=== PATIENT | male | born 1940 | race Caucasian/White ===

== ENCOUNTER → 2020-05-26 10:18 | Outpatient (BNVA) | payer MEDICARE, SELFPAY | PROVIDERS: Family Provider Family Medicine; PCP Family Medicine; Visit Provider Nurse Practitioner Family | DX: N28.1 Cyst of kidney, acquired (principal) | CPT/HCPCS: 81001 ==

== ENCOUNTER 2020-11-15 09:13 | Outpatient (CLI) | payer MEDICARE, SELFPAY ==
--- NOTE | 2020-11-15 09:15 | US_ITS ---
WS: [id number] ULTRASOUND RENAL TECHNIQUE: Ultrasound examination of both kidneys. CLINICAL INFORMATION: Renal Cyst COMPARISON: None. FINDINGS: RIGHT: 3 simple right renal cysts the largest measuring 4.0 x 4.0 x 3.7 cm. Additional smaller right renal c yst measuring 2.1 x 2.4 x 2.5 cm. Echogenicity: Normal. Cortical thickness: cm; Normal. Hydronephrosis: None. Perinephric fluid: None. Right kidney measures: 12.3 cm x 5.5 cm x 6.1 cm. LEFT: Left kidney is normal in size and appearance. Echogenicity: Normal. Cortical thickness: cm; Normal. Hydronephrosis: None. Perinephric fluid: None. Left kidney measures: 11.2 cm x 5.7 cm x 6.2 cm. Normal visualized aorta.Enlarged nodular prostate measuring 6.3 x 6.1 x 6.4 CM. Recommend correlation PSA. US/US renal BI* [id number] IMPRESSION: 1. No hydronephrosis in either kidney 2. Several simple right renal cysts the largest measuring 4.0 x 4.0 x 3.7 cm. Additional smaller right renal cyst measuring 2.1 x 2.4 x 2.5 cm. 3. Enlarged nodular prostate measuring 6.3 x 6.1 x 6.4 CM. Recommend correlati on PSA.
== END 2020-11-15 09:14 | disposition home or self-care (01) ==
LOC: RAD 09:16
PROVIDERS: PCP Family Medicine; Visit Provider Urology
DX: N28.1 Cyst of kidney, acquired (principal); N40.0 Benign prostatic hyperplasia without lower urinary tract symptoms
CPT/HCPCS: 76770; 81003

== ENCOUNTER 2020-11-16 09:27 | Outpatient (CLI) | payer MEDICARE, SELFPAY ==
--- NOTE | 2020-11-16 09:30 | CT_ITS ---
WS: [id number] CT CHEST, ABDOMEN AND PELVIS WITH CONTRAST HISTORY: KIDNEY CYSTS, CHRONIC BILATERAL THORACIC BACK PAIN TECHNIQUE: Contiguous 5 mm axial imaging performed through the chest, abdomen and pelvis with IV cont rast, oral contrast has been provided. Coronal and sagittal reformats chest. Coronal and sagittal ref ormats through the abdomen and pelvis. All CT scans at [facility] use at least one of the se dose optimization techniques: automated exposure control; mA and/or kV adjustment per patient size (includes targeted exams where dose is matched to clinical indication); or iterative reconstruction. CONTRAST: Omnipaque 300; 95 mL IV. DLP: 2412.93 mGycm COMPARISON: Renal ultrasound 11/15/[address]: No pulmonary nodule, pneumonia or mass. No pleural or pericardial effusions. Heart size is normal. No mediastinal or hilar adenopathy. Visualized upper thorax and the chest wall are negative. There are mild atherosclerosis of aorta with mild ectasia of the ascending aorta. No aneurysm. Normal size pulmonary artery. No significant hiatal hernia. Abdomen CT: Mild hepatic steatosis. Normally distended gallbladder. There is a small septation or phr ygian cap associated with the gallbladder. No cholecystitis. Spleen and pancreas are normal. No bile duct dilatation. There are several simple cysts associated with the RIGHT kidney. The largest from th e upper measures 4.8 x 3.6 cm. Mild bilateral perinephric stranding with no obstruction. Mild atheros clerosis aorta with no aneurysm. No ascites or adenopathy. Mild fecal retention throughout the colon with tortuous overlapping loops of GI tract. Numerous diver ticula in the descending and sigmoid colon. No significant narrowing of the lumen and no acute divert iculitis. No small bowel obstruction. The appendix is normal. Pelvic CT: No free fluid in the pelvis. Well-distended urinary bladder. Moderately enlarged prostate gland with variable density extends over length of 6.4 cm x 6.0 x 4.9 cm. No adenopathy. Thoracic and lumbar spondylosis is mild. No osteoblastic or osteolytic bone disease. Mild narrowing o f the hip joints bilaterally from arthritis. CT/CT chest abd pel w con* IMPRESSION: 1. No pulmonary mass or pneumonia. 2. Mild atherosclerosis thoracic and abdominal aortas with no aneurysm. 3. Benign RIGHT renal cysts. 4. Mild bilateral perinephric stranding with no obstruction. 5. Descending and sigmoid diverticulosis without acute diverticulitis. 6. Moderately enlarged prostate gland.
[2020-11-16] MEDS: iohexol 300 mg/mL 50 mL Btl PO (10:22)
[2020-11-16] MEDS: iohexol 300 mg/mL 100 mL Btl IV (11:00)
== END 2020-11-16 09:28 | disposition home or self-care (01) ==
LOC: RADWPI 09:33
PROVIDERS: PCP Family Medicine; Visit Provider Registered Nurse
DX: M54.6 Pain in thoracic spine (principal); G89.29 Other chronic pain; N40.0 Benign prostatic hyperplasia without lower urinary tract symptoms; K57.30 Diverticulosis of large intestine without perforation or abscess without bleeding; Q61.02 Congenital multiple renal cysts; I70.0 Atherosclerosis of aorta
CPT/HCPCS: 71260; 74177; Q9967

== ENCOUNTER → 2024-07-08 13:08 | Outpatient (BNVA) | payer MEDICARE, SELFPAY | PROVIDERS: PCP Family Medicine; Visit Provider Podiatrist Foot & Ankle Surgery | DX: M79.672 Pain in left foot (principal); M72.2 Plantar fascial fibromatosis; G62.9 Polyneuropathy, unspecified; M24.572 Contracture, left ankle | CPT/HCPCS: 73630; 99203 ==

== ENCOUNTER → 2024-08-19 12:30 | Outpatient (BNVA) | payer MEDICARE, SELFPAY | PROVIDERS: PCP Family Medicine; Visit Provider Podiatrist Foot & Ankle Surgery | DX: M72.2 Plantar fascial fibromatosis (principal); G62.9 Polyneuropathy, unspecified; M24.572 Contracture, left ankle | CPT/HCPCS: 99213 ==

== ENCOUNTER 2025-07-10 14:49 | Emergency (ER) | payer MEDICARE, SELFPAY ==
[2025-07-10 14:53] VITALS: BP 123/85; PULSE 90; RESP 16; TEMP 36.7; O2SAT 95; BMI 28.1
--- OUTSIDE RECORDS SUMMARY | 2025-07-10 14:56 | XMS_ITS | Encounter Summary ---
Author Organization [facility] Address [address] [place] [address] Care Team Providers Care Travel Accommodation Inspector Name Role Phone Loreta Andrea DO Primary Care Provider [phone] Encounter Details Date Type Department Care Team (Late st Contact Info) Description 05/10/2020 Ancillary Orders [facility] [address] [place] [address] Loreta Andrea DO [address] [place] [address] Right flank pain; History of kidney stones; Acute right-sided low back pain with right-sided sciatica Social History Tobacco Use Types Packs/Day Years Used Date Smoking Tobacco: Former Cigarettes Smokeless Tobacco: Never Alcohol Use Standard Drinks/Week Comments No 0 (1 standard drink = 0.6 oz pur e alcohol) Sex and Gender Information Value Date Recorded Sex Assigned at Not on file Legal Sex Male 8:48 AM CDT Gender Identity Not on file Sexual Orientation Not on file Occupation Industry Job Start Date Job End Date Not on file Not on file Not on file Not on file COVID-19 Exposure Response Date Recorded In the last month, have you been in contact with someone who was confirmed or suspected to have Coronavirus / COVID-19? No / Unsure 05/10/2020 1:25 PM CDT documented as of this encounter Plan of Treatment Not on file documented as of this encounter Results * XR THORACIC SPINE 3 VW (05/10/2020 2:04 PM CDT) Anatomical Region Laterality Modality Spine Computed Radiogr aphy 05/10/2020 2:04 PM CDT Impressions 05/10/2020 4:04 PM CDT IMPRESSION: Please see below. Exam: XR THORACIC SPINE 3 VW Date/Time of Exam: 05/10/2020 2:04 PM Reason For Exam: See Diagnosis. Diagnosis: Right flank pain; History of kidney stones; Acute right-sided low back pain with right-sided sciatica. Findings: Normal alignment. Hyperostotic changes of the thoracic spine noted. Mild degenerative disc disease also present. No fracture or dislocation. Prior ACDF. IMPRESSION: No acute pathology. Degenerative changes as described. [id number] Narrative Procedure Note Santy Bermudez MD - 05/10/2020 IMPRESSION: Please see below. Exam: XR THORACIC SPINE 3 VW Date/Time of Exam: 05/10/2020 2:04 PM Reason For Exam: See Diagnosis. Diagnosis: Right flank pain; History of kidney stones; Acute right-sided low back pain with right-sided sciatica. Findings: Normal alignment. Hyperostotic changes of the thoracic spine noted. Mild degenerative disc disease also present. No fracture or dislocation. Prior ACDF. IMPRESSION: No acute pathology. Degenerative changes as described. [id number] Loreta Andrea DO DIAGNOSTIC IMAGING ORDERABL ES Final Result documented in this encounter Visit Diagnoses Diagnosis Right flank pain Abdominal pain, unspecified site History of kidney stones Personal history of urinary calculi Acute right-sided low back pain with right-sided sciatica Right flank pain Abdominal pain, unspecified site History of kidney stones Personal history of urinary calculi Acute right-sided low back pain with right-sided sciatica documented in this encounter Additional Health Concerns Infection Onset Date Last Indicated Resolved Time R/O C. diff 10/11/2020 10/11/2020 10/12/2020 10:2 5 AM DIRECTOR OF DIETARY documented as of this encounter Care Teams Travel Accommodation Inspector Relationship Specialty Start Date End Date Loreta Andrea DO [address] [place] [address] PCP - General Family Practice 01/20/19 documented as of this encounter
--- OUTSIDE RECORDS SUMMARY | 2025-07-10 14:56 | XMS_ITS | Patient Health Record ---
Author Organization [facility] Address [address] [place] [address] Care Team Providers Care Infrastructure Engineer Name Role Phone John Bernardo Unavailable [phone] Reason For Referral No Information Problems Problem Type SNOMED Code ICD Code Onset Dates Problem Status W/U Status Risk Notes Problem Hypercholesterolemia (92471335) Hypercholesterolemia (272.0) 2015 Active confirmed [id number] Problem Panic attack (850230154) Panic attack (300.01) 2017 Active confirmed [id number]- Problem Cough (11533232) Cough (786.2) 2015 Problem resolved confirmed [id number] Problem Screening for malignant neoplasm of prostate (266763532) Screening for prostate cancer (V76.44) 2017 Problem resolved confirmed [id number]- Problem Screening for cardiovascular system disease (procedure) (466306419) Screening for cardiovascular conditions (V81.2) 2015 Problem resolved confirmed [id number]- Problem Gastroesophageal reflux disease (636986070) GERD (530.81) 2015 Problem resolved confirmed [id number]- Problem General examination of patient (209304285) Wellness exam (V70.0) 2016 Problem resolved confirmed [id number]- Plan Of Treatment No Information
--- OUTSIDE RECORDS SUMMARY | 2025-07-10 14:56 | XMS_ITS | Clinical Summary ---
Author Organization [facility] Address [address] [place] [address] [address] [place] [address] Care Team Providers Care Director Industrial Name Role Phone LilianaMook rockwell Primary Care Provider [phone] Allergies Active Allergy Reactions Criticality Noted Date Comments Codeine Itching Low 09/29/2018 Sulfites Anaphylaxis,Itching High 09/29/2018 Medications UBIQUINONE ORAL Take 1 Capsule by mouth daily. 9 Active MAGNESIUM ORAL Take 120 mg by mouth daily master planner. 9 Active L-CYSTINE ORAL Take by mouth daily. Active ZINC ORAL 25 mg. 1 Active vitamin K2 100 mcg Capsule 1 Active cholecalciferol, Vitamin D3, 50 mcg (2,000 unit) Tablet 1 Active Taurine 1,000 mg Capsule 1 Active KRILL OIL ORAL 1,600 mg. 7 Active niacin (NIACOR) 500 mg tablet 2 Active Lactobac no.41/Bifidobact no.7 (PROBIOTIC-10 ORAL) Take 1 Capsule by mouth daily. 9 Active acetylcysteine (NAC ORAL) Take by mouth. Acti ve albuterol sulfate HFA 90 mcg/actuation aerosol inhalerIndicatio ns:Lower respiratory infection Take 2 Puffs by inhalation every 6 hours as needed for Shortness of Breath. 8.5 Gram 1 5 Active Active Problems Problem Noted Date Diagnosed Date Generalized muscle weakness 05/10/2024 Neuropathy involving both lower extremities 09/2023 Peripheral arterial disease 08/21/2021 Generalized anxiety disorder 09/29/2018 Panic attack 10/23/2017 Essential hypertension 12/01/2013 Gastroesophageal reflux disease without esophagi tis 12/01/2013 Mixed hyperlipidemia 12/01/2013 Encounters Date Type Department Care Team Description 05/11/2025 External Device Data STL ABSTRACTION Provider, Abstract 04/27/2025 External Device Data ST[facility] ABSTRACTION Provider, Abstract 04/13/2025 External Device Data ST[facility] ABSTRACTION Provider, Abstract from Last 3 Months Immunizations Immunization Administration Dates Next Due INFLUENZA VACCINE HIGH DOSE QUADRIVALENT 65 YR UP PF IM 09/11/2023,05/31/2022,05/25/2021,2019 Influenza Seasonal Unspecifi ed Formulation IM 05/04/2020,07/03/2013 Influenza Vaccine High Dose 65+ Yrs IM 06/12/2019,05/12/2018 Influenza Vaccine Tri Adjuva nted 65+ PF IM 06/09/2018 PREVNAR (PCV13) pneumococcal 13-valent conjugate Vaccine 09/10/2006 Pneumococcal 7-valent conjug ate vaccine IM 09/10/1999 Pneumococcal conjugate, unsp ecified formulation 09/10/1999 Family History Medical History Relation Name Comments Heart Disease Mother Relation Name Status Comments Father Maternal Grandfather Maternal Grandmother Mother Paternal Grandfather Paternal Grandmother Social History Tobacco Use Types Packs/Day Years Used Date Smoking Tobacco: Former Cigarettes 0.1 22 1 959 - 1980 Smokeless Tobacco: Never Tobacco Cessation:Counseling Given: Not Answered Alcohol Use Standard Drinks/Week Comments No 0 (1 standard drink = 0.6 oz pur e alcohol) Sex and Gender Information Value Date Recorded Sex Assigned at Not on file Legal Sex Male 10:53 AM AIRCONDITIONING ENGINEER Gender Identity Not on file Sexual Orientation Not on file Last Filed Vital Signs Vital Sign Reading Time Taken Comments Blood Pressure 134/68 01/19/2025 11:29 AM CDT Pulse 73 01/19/2025 11:29 AM CDT Temperature 36.1 C (96.9 F) 01/19/2025 11:29 AM CDT Respiratory Rate 18 01/19/2025 11:2 9 AM CDT Oxygen Saturation 94% 01/19/2025 11: 29 AM CDT Inhaled Oxygen Concentration - - Weight 84.3 kg (185 lb 12.8 oz) 025 11:29 AM CDT Height 170.2 cm (5' 7 ) 01/19/2025 11:2 9 AM CDT Body Mass Index 29.1 01/19/2025 11:29 AM CDT Plan of Treatment Upcoming Encounters Date Type Department Care Team (Late st Contact Info) Description 07/19/2025 10:40 AM AIRCONDITIONING ENGINEER Office Visit [facility] [address], [place] [phone] Anahi Oglesby, EQUIPMENT OPERATOR WAREHOUSE [address] [place] [address] Health Maintenance Due Date Last Done Comments DTAP/TDAP/TD VACCINES (1 - Tdap) 1959 ZOSTER VACCINE (1 of 2) 1990 PNEUMOCOCCAL VACCINE 50+ YEA RS (2 of 2 - PCV20 or PCV21) 09/10/2007 09/10/2006, 09/10/1999, 09/10/1999 RSV VACCINE (60+ or ) (1 - 1-dose 75+ series) 2015 Medicare Advantage ([place]) Preventative Visit/Annual Wellness Visit 09/09/2024 INFLUENZA VACCINE (#1) 2025 , 05/31/2022, 05/25/2021, Additional history exists Insurance [facility] [id number] RX [employer] RX Member Subscriber Plan / Payer (Ef fective 2020-Present) Name:Osmin Tyler Relation to Subscriber:Self Name:Osmin Tyler Payer ID:Not on file Group ID:[id number] Type:RX Medicare Part D Address: [address] Advance Directives For more information, please contact: [phone] * Full Code (Latest Code Status on File) Date Activated Date Inactivated Comments 11/01/2022 10:08 AM 11/01/2022 8:10 PM Care Teams Director Industrial Relationship Specialty Start Date End Date Mook Rinaldi DO [address] [place] [address] PCP - General Family Practice 08/22/23
--- OUTSIDE RECORDS SUMMARY | 2025-07-10 14:56 | XMS_ITS | Clinical Summary ---
Author Organization [facility] Address [address] [place] [address] Care Team Providers Care Blueberry Grower Name Role Phone ZullyLoreta cottrell Vesta VILLEGAS Primary Care Provider [phone] Allergies Active Allergy Reactions Criticality Noted Date Comments Codeine Itching Low 09/29/2018 Sulfites Anaphylaxis,Itching High 09/29/2018 Medications KRILL OIL ORAL Take 1 Capsule by mouth daily. Active Lactobac no.41/Bifidobact no.7 (PROBIOTIC-10 ORAL) Take 1 Capsule by mouth daily. Active glucosamine/msm/ch ondroitin A (GLUCOSAMINE [id number] ) 500-300-400 mg Tablet Take 2 Capsules by mouth daily. Active OTHERIndications:P regnenolone 5mg Take 1 Capsule by mouth daily ski technician Provider please include Medication name, dose, route and frequency . Active OTHERIndications:M uscle Cramp/Tension Take 1 Capsule by mouth daily at bedtime Provider please include Medication name, dose, route and frequency . Active MAGNESIUM ORAL Take 120 mg by mouth daily ski technician. Active UBIQUINONE ORAL Take 1 Capsule by mouth daily. Active cholecalciferol, Vitamin D3, (VITAMIN D3) 1,000 unit Capsule Take 1,000 Units by mouth daily. Active OTHERIndications:U ltraNutrient Take 1 Capsule by mouth 2 times daily Provider please include Medication name, dose, route and frequency . Active OTHERIndications:N itric Oxide Support Take 1 SCOOP by mouth daily at bedtime Provider please include Medication name, dose, route and frequency . Active nystatin (MYCOSTATIN) 100,000 unit/gram CreamIndications:S kin candidiasis Apply to affected area 4 times daily Apply small amount BID to right groin until rash healed. 30 Gram 2 9 Active PROAIR HFA 90 mcg/actuation inhalerIndications :Exercise-induced asthma INHALE 2 PUFFS BY MOUTH EVERY 6 HOURS NEEDED FOR SHORTNESS OF BREATH 8.5 Gram 6 0 Active omeprazole magnesium (PriLOSEC OTC) 20 mg Tablet, Delayed Release (E.C.) Take 1 Tablet (20 mg) by mouth daily. 30 Tablet 3 0 Active ezetimibe (ZETIA) 10 mg tabletIndications: Mixed hyperlipidemia TAKE 1 TABLET(10 MG) BY MOUTH DAILY 90 Tablet 3 1 Active ALPRAZolam (XANAX) 0.5 mg tabletIndications: Generalized anxiety disorder TAKE 1 TABLET BY MOUTH TWICE DAILY NEEDED FOR ANXIETY 30 Tablet 1 Active Active Problems Problem Noted Date Diagnosed Date Generalized anxiety disorder 09/29/2018 Hypertension 12/01/2013 Hyperlipidemia 12/01/2013 GERD (gastroesophageal reflux disease) 4 Prostate cancer screening 12/01/2013 Immunizations Immunization Administration Dates Next Due INFLUENZA VACCINE HIGH DOSE QUADRIVALENT 65 YR UP PF IM 05/04/2020 Influenza Seasonal Unspecified Formulation IM ,07/03/2013 Influenza Vaccine High Dose 65+ Yrs IM 9,05/12/2018 Influenza Vaccine Tri Adjuvanted 65+ PF IM 06/09 PREVNAR (PCV13) pneumococcal 13-valent conjugate Vaccine 09/10/2006 Pneumococcal 7-valent conjugate vaccine IM 09/10 Pneumococcal conjugate, unspecified formulation 09/10/1999 Family History Medical History Relation Name Comments Heart Disease Mother Relation Name Status Comments Father Maternal Grandfather Maternal Grandmother Mother Paternal Grandfather Paternal Grandmother Social History Tobacco Use Types Packs/Day Years Used Date Smoking Tobacco: Former Cigarettes Smokeless Tobacco: Never Tobacco Cessation:Counseling Given: Yes Alcohol Use Standard Drinks/Week Comments No 0 [...] file Not on file Not on file Last Filed Vital Signs Vital Sign Reading Time Taken Comments Blood Pressure 122/81 11/07/2020 1:04 PM ASSISTANT PROFESSOR OF FORESTRY Pulse 87 11/07/2020 1:04 PM ASSISTANT PROFESSOR OF FORESTRY Temperature 36.6 C (97.8 F) 11/07/2020 1:04 PM ASSISTANT PROFESSOR OF FORESTRY Respiratory Rate 18 05/03/2020 3:29 PM CDT Oxygen Saturation 96% 11/07/2020 1:04 PM ASSISTANT PROFESSOR OF FORESTRY Inhaled Oxygen Concentration - - Weight 86.2 kg (190 lb) 11/07/2020 1:04 PM ASSISTANT PROFESSOR OF FORESTRY Height 172.7 cm (5' 8 ) 11/07/2020 1:04 PM ASSISTANT PROFESSOR OF FORESTRY Body Mass Index 28.89 11/07/2020 1:04 PM ASSISTANT PROFESSOR OF FORESTRY Plan of Treatment Health Maintenance Due Date Last Done Comments DTAP/TDAP/TD VACCINES (1 - Tdap) 1959 ZOSTER VACCINE (1 of 2) 1990 PNEUMOCOCCAL VACCINE 50+ YEA RS (2 of 2 - PCV20 or PCV21) 09/10/2007 09/10/2006, 09/10/1999, 09/10/1999 RSV VACCINE (60+ or ) (1 - 1-dose 75+ series) 2015 Medicare Advantage ([place]) Preventative Visit/Annual Wellness Visit 09/09/2024 03/24/2019 INFLUENZA VACCINE (#1) 2025 0, 05/04/2020, 06/12/2019, Additional history exists Insurance UHC DUAL COMPLETE [facility] PPO D-SNP Care Teams Blueberry Grower Relationship Specialty Start Date End Date Loreta Andrea DO [address] [place] [address] PCP - General Family Practice 01/20/19
--- NOTE | 2025-07-10 15:17 | XRR_ITS ---
PROCEDURE INFORMATION: Exam: XR Chest Exam date and time: 07/10/2025 3:33 PM Age: 85 years old Clinical indication: Other: Weakness TECHNIQUE: Imaging protocol: Radiologic exam of the chest. Views: 1 view. COMPARISON: CT chest abdpel w/*[id number] 11/16/2020 10:57 AM FINDINGS: Lungs: The lungs are clear. Pleural spaces: The pleural spaces are clear. Heart/Mediastinum: Heart size is normal. The descending thoracic aorta is tortuous. Mediastinal size is normal. Bones/joints: There has been previous internal fixation of the cervical spine. XR/XR chest 1V portable [id number] IMPRESSION: No acute findings.
--- NOTE | 2025-07-10 15:18 | W.ED.WEAKNES ---
HPI - Weakness General: Chief complaint: Weakness Stated complaint: weakness Time Seen by Provider: 07/10/25 14:52 History of Present Illness: Patient is an 85-year-old gentleman without any real medical history, presents to the emergency room due to dizziness, weakness, and presyncope symptoms. Content: This started this a.m. Patient felt like he was going to pass out. He had increased dizziness. He has a headache. Blood pressure per EMS was 180/100. He was given nitroglycerin specifically for his blood pressure. Remaining symptoms are his light intolerance, mild gait instability. Denies any dizziness at this time. No fevers. No chest discomfort. Last known well: Last p.m. No history of CVA, CAD Associated symptoms: Reports headache(s); Denies chest pain, chills, confusion, easy bruising, fever(s), nausea or vomiting Related Data Home Medications ?Medication ?Instructions ?Recorded ?Confirmed Lactobacillus 1 cap PO DAILY 05/26/20 07/10/25 no.51-Bifidobacterium no.4 50 billion cell capsule (up4 Probiotics Ultra) cholecalciferol (vitamin D3) 10 10 mcg PO DAILY 11/15/20 07/10/25 mcg (400 unit) capsule coenzyme Q10 100 mg capsule (Co 100 mg PO DAILY 11/15/20 07/10/25 Q-10) magnesium glycinate 120 mg (as 120 mg PO DAILY 07/10/25 07/10/25 glycinate) capsule Allergies Allergy/AdvReac Type Severity Reaction Status Date / Time Sulfa (Sulfonamide AdvReac Unknown ADR-Itching Verified 08/19/24 10:25 Antibiotics) codeine AdvReac ADR-Itching Verified 08/19/24 10:25 Review of Systems General: Reports: 10 or more systems reviewed and unremarkable except in HPI and below Const: Denies: fever(s) or chills Eyes: Denies: change in vision or blurry vision Card: Denies: chest pain or palpitations Resp: Denies: dyspnea or productive cough GI: Denies: abdominal pain, nausea or vomiting : Denies: flank pain Musc: Denies: neck pain, back pain, extremity pain or extremity swelling Skin/Breast: Denies: rash, pruritus or sores Neuro: Reports: headache(s), weakness in extremities, lack of coordination, difficulty walking, dizziness and vertigo; Denies: numbness in extremities, sensory changes or confusion Psych: Denies: anxiety, depression or suicidal ideation Agustin/Lymph: Denies: easy bruising PFSH ED PFSH: Medical History (Updated 07/10/25 @ 17:19 by ARTURO Edwards) Renal cyst Family History Mother , at age 83 Alzheimer disease Father , at age 62-killed by a drunk flatbed driver No problems noted. Social History Smoking and tobacco/nicotine status: former use of tobacco/nicotine (quit 50 years ago ) Alcohol intake: never Substance/Drug Use: unknown Adopted: No Caregiver/support person: No Lives independently: No Household members: spouse Marital status: Current occupational status: retired Physical Exam Const: COMMON NORMALS: no acute distress, average body habitus and patient oriented x3 HENMT: COMMON NORMALS: normocephalic, atraumatic and TM's normal bilaterally HEAD & SCALP: normocephalic and atraumatic TYMPANIC MEMBRANE: TM's normal bilaterally Eye: COMMON NORMALS: Equal, round and reactive pupils present, EOMs intact bilaterally and conjunctivae normal CONJUNCTIVA: Yes conjunctivae normal PUPIL: Yes Equal, round and reactive pupils present Neck/C-Spine: COMMON NORMALS: full ROM, no lymphadenopathy, supple and no meningeal signs Lymph: LYMPHATIC: no lymphadenopathy noted Chest: COMMONS NORMALS: normal inspection of the chest and normal palpation of entire chest wall Resp: COMMON NORMALS: normal respiratory effort, No retractions and No use of accessory muscles Cardio: COMMON NORMALS: regular rate and regular rhythm RATE: regular rate RHYTHM: regular rhythm GI: COMMON NORMALS: Normal to inspection, nondistended, normoactive bowel sounds present, Soft to palpation, non-tender and No hepatosplenomegaly present PALPATION: Yes Soft to palpation and Yes No hepatosplenomegaly present : COMMON NORMALS: Yes no CVA tenderness BLADDER/KIDNEY EXAM: Yes no CVA tenderness Back/Pelvis: COMMON NORMALS: no CVA tenderness Extremity: COMMON NORMALS: normal to inspection, full ROM and capillary refill normal Neuro: COMMON NORMALS: patient oriented x3, CN's II-XII intact bilaterally and moves all extremities MENINGEAL SIGNS: Yes no meningeal signs Psych: COMMON NORMALS: mental status grossly normal, Normal thought process present and cooperative THOUGHT PROCESS: Normal thought process present Course Vital Signs: Vital signs: Vital Signs Temperature 98.1 F 07/10/25 14:53 Pulse Rate 100 07/10/25 17:46 Respiratory Rate 17 07/10/25 17:46 Blood Pressure 102/67 07/10/25 17:46 Pulse Oximetry 94 07/10/25 17:46 Oxygen Delivery Me thod Room Air 07/10/25 16:00 MDM - Weakness Medical Decision Making Patient is 85-year-old male that reports to the emergency room today. No acute findings were noted. Last known well was yesterday. There is no reason to workup for acute stroke at this time given he is out of the window. I have discussed with patient to take an aspirin for primary prevention, go to his primary care physician to obtain lipid panel, echocardiogram, and MRI outpatient. As well, primary care may want assessment for PT/OT. Patient assures me he has a primary care to follow-up with. Patient will return here if he has further issues. Medical Records I reviewed the patient's medical records. Lab Data I reviewed the patient's lab results. 07/10/25 15:27 07/10/25 15:27 Radiology Impressions Chest X-Ray 07/10/25 15:17 IMPRESSION: No acute findings. Head CT 07/10/25 16:13 IMPRESSION: 1. Chronic infarcts and mild chronic small-vessel ischemic changes are noted in the cerebrum. 2. Cerebral and cerebellar volume loss. 3. Mild sinusitis. 4. No acute intracranial abnormality identified. If there is clinical concern for acute stroke, MRI should be obtained. Laboratory Results WBC 5.25 10^3/uL (3.29-11.43) 07/10/25 15:27 RBC 5.14 10^6/uL (3.85-5.65) 07/10/25 15:27 Hgb 16.10 g/dL (11.27-16.99) 07/10/25 15:27 Hct 48.9 % (37-53) 07/10/25 15:27 MCV 95.1 fl (82-101) 07/10/25 15:27 MCH 31.3 pg (27-33) 07/10/25 15:27 MCHC 32.9 g/dL (30-55) 07/10/25 15:27 RDW 13.5 % (12.1-15.1) 07/10/25 15: Plt Count 171 10^3/cmm (157-399) 07/10/25 15:27 MPV 8.9 fL (7.4-10.4) 07/10/25 15:27 Neut % (Auto) 72.8 % 07/10/25 15:27 Lymph % (Auto) 16.6 % 07/10/25 15:27 Clarke % (Auto) 6.7 % 07/10/25 15:27 Eos % (Auto) 2.9 % 07/10/25 15:27 Baso % (Auto) 0.6 % 07/10/25 15:27 Neut # (Auto) 3.83 10^3/uL (1.8-7.7) 07/10/25 15:27 Lymph # (Auto) 0.9 10^3/uL (0.8-4.8) 07/10/25 15:27 Clarke # (Auto) 0.4 10^3/uL (0.2-0.9) 07/10/25 15:27 Eos # (Auto) 0.2 10^3/uL (0.0-0.8) 07/10/25 15:27 Baso # (Auto) 0.0 10^3/uL (0.0-0.1) 07/10/25 15:27 Nucleated RBC % (auto) 0 % 07/10/25 15: Nucleated RBCs # 0.0 /100WBC 07/10/25 15:27 Sodium 139 mmol/L (136-145) 07/10/25 15:27 Potassium 4.5 mmol/L (3.5-5.1) 07/10/25 15:27 Chloride 102 mmol/L (98-107) 07/10/25 15:27 Carbon Dioxide 26 mmol/L (22-29) 07/10/25 15:27 Anion Gap 15.5 (5-19) 07/10/25 15:27 BUN 14 mg/dL (8-23) 07/10/25 15:27 Creatinine 0.9 mg/dL (0.7-1.2) 07/10/25 15:27 GFR Calculation Not Reportable 07/10/25 15:27 Glucose 106 mg/dL (65-115) 07/10/25 15:27 Calculated Osmolality 289 mOsm/kg (285-295) 07/10/25 15:27 Calcium 9.7 mg/dL (8.5-10.5) 07/10/25 15:27 Total Bilirubin 0.5 mg/dL (0.15-1.2) 07/10/25 15:27 AST 27 U/L (0-40) 07/10/25 15:27 ALT 16 U/L (0-41) 07/10/25 15:27 Alkaline Phosphatase 73 U/L (40-130) 07/10/25 15:27 Troponin T Baseline 16 ng/L (0-15) H 07/10/25 15:27 Troponin T 120 Minute 15.44 ng/L (0-15) H 07/10/25 17:15 Delta Troponin T -0.56 ABS# (0-10) L 07/10/25 17:15 Total Protein 6.8 g/dL (6.6-8.7) 07/10/25 15:27 Albumin 4.4 g/dL (3.5-5.2) 07/10/25 15:27 Globulin 2.4 g/dL (1.3-4.6) 07/10/25 15:27 Urine Color Yellow (Yellow) 07/10/25 15:34 Urine Appearance Clear (CLEAR) 07/10/25 15:34 Urine pH 7.0 (5-7) 07/10/25 15:34 Ur Specific [place] 1.010 (1.005-1.030) 07/10/25 15:34 Urine Protein Negative (Negative) 07/10/25 15:34 Urine Glucose (UA) Negative (Normal) 07/10/25 15:34 Urine Ketones Trace (Negative) 07/10/25 15:34 Urine Blood Negative (Negative) 07/10/25 15:34 Urine Nitrate Negative (Negative) 07/10/25 15:34 Urine Bilirubin Negative (Negative) 07/10/25 15:34 Urine Urobilinogen 0.2 mg/dL (Negative) 07/10/25 15:34 Ur Leukocyte Esterase Negative (Negative) 07/10/25 15:34 Urine RBC 0-2 /hpf (0-2) 07/10/25 15:34 Urine WBC 0-5 /hpf (0-5) 07/10/25 15:34 Ur Squamous Epith Cells 0-5 /hpf (0-5) 07/10/25 15:34 Amorphous Sediment Not Reportable 07/10/25 15:34 Urine Bacteria None seen /hpf (NONE) 07/10/25 15:34 Hyaline Casts 0-4 /lpf H 07/10/25 15:34 All radiology interpretation(s) finalized by discharge EKG Data EKG 1: Interpretation: Left axis, first-degree block, sinus rhythm, no ST segment elevation, Discharge Plan Discharge Patient Disposition: Home Clinical Impression: Dizziness, Chronic cerebrovascular accident Condition: Stable Prescriptions: No Action cholecalciferol (vitamin D3) 10 mcg (400 unit) capsule 10 mcg PO DAILY coenzyme Q10 [Co Q-10] 100 mg capsule 100 mg PO DAILY up4 Probiotics Ultra 50 billion cell capsule 1 cap PO DAILY magnesium glycinate 120 mg Capsule 120 mg PO DAILY Discharge Orders: Discharge ED (Routine); Ordered 07/10/25 Ordered By: Merry Sanchez Referrals: Loreta Andrea DO [Primary Care Provider, Family Practice] Discharge Diet: Low Salt Discharge Activity: Use walker/crutches as instructed Patient Instructions: Stroke Prevention (ED), Patient Portal & Kelsey Instructions Activity Restrictions/Additional Instructions: - Take daily coated baby aspirin of 81 mg -Follow-up with your doctor regarding physical therapy and Occupational Therapy evaluation - Return to ED if you do have worsening symptoms of dizziness. - Gait safety is important. utilize a cane or walker to avoid gait instability and safety issues. Thank you for choosing [facility] for your healthcare needs today. You have been screened and evaluated and felt safe for discharge. Health conditions do change or evolve sometimes and as such it is important that you follow up with your Primary Doctor to be re checked, 3-5 days is a general good time frame for follow up. You are always welcome to return to the ED for re assessment if your symptoms are worsening or you have new concerns Print Language: Lithuanian Coding Level of Care Code ED Warper Creeler for Nica Hidalgo
--- NOTE | 2025-07-10 15:21 | ECG_ITS ---
[facility] Test Date: 2025-07-10 Pat Name: Osmin Tyler Department: Room: Gender: Male Coding Machine Operator: : 1940 Requested By: Rickey Lemons Order Number: [id number] Reading MD: CHACE JARQUIN Measurements Intervals [place] Rate: 85 P: 35 AL: 260 QRS: -72 QRSD: 159 T: 35 QT: 381 QTc: 454 Interpretive Statements SINUS RHYTHM WITH FIRST DEGREE AV BLOCK RIGHT BUNDLE BRANCH BLOCK [120+ ms QRS DURATION, UPRIGHT V1, 40+ ms S IN I/aVL/V4/V5/V6] LEFT ANTERIOR FASCICULAR BLOCK [QRS AXIS <= -45, QR IN I, RS IN II] No previous ECG available for comparison Electronically Signed On 07-10-2025 21:11:15 CDT by CHACE JARQUIN [email or web address]
[2025-07-10 15:37] LABS: Hematocrit 48.9 % (37-53); Hemoglobin 16.10 g/dL (11.27-16.99); Mean Corpuscular HGB Conc 32.9 g/dL (30-55); Mean Corpuscular Hemoglobin 31.3 pg (27-33); Mean Corpuscular Volume 95.1 fl (82-101); Nucleated Red Blood Cells % 0 %; Platelet Count 171 10^3/cmm (157-399); Red Blood Count 5.14 10^6/uL (3.85-5.65); White Blood Count 5.25 10^3/uL (3.29-11.43)
[2025-07-10 15:40] LABS: Glucose Urine UA Negative (Normal); Nitrate Urine Negative (Negative); Specific Gravity, Urine 1.010 (1.005-1.030)
[2025-07-10 15:45] LABS: Add Urine Microscopic? YES
[2025-07-10 15:58] LABS: Troponin(5th) Baseline 16 ng/L (0-15)
[2025-07-10 16:00] VITALS: BP 166/80; O2SAT 94
[2025-07-10 16:00] LABS: Alanine Aminotransferase 16 U/L (0-41); Albumin Level 4.4 g/dL (3.5-5.2); Alkaline Phosphatase 73 U/L (40-130); Aspartate Amino Transferase 27 U/L (0-40); Blood Urea Nitrogen 14 mg/dL (8-23); Calcium 9.7 mg/dL (8.5-10.5); Carbon Dioxide 26 mmol/L (22-29); Chloride 102 mmol/L (98-107); Creatinine Clr Calc Pharmacy 61.3817; Globulin 2.4 g/dL (1.3-4.6); Glucose 106 mg/dL (65-115); Osmolality Calculated 289 mOsm/kg (285-295); Sodium 139 mmol/L (136-145); Total Protein 6.8 g/dL (6.6-8.7)
--- NOTE | 2025-07-10 16:03 | PC.PHAR ---
Pt states he only takes supplements, no rx maintenance medications.
--- NOTE | 2025-07-10 16:13 | CTR_ITS ---
PROCEDURE INFORMATION: Exam: CT Head Without Contrast Exam date and time: 07/10/2025 4:34 PM Age: 85 years old Clinical indication: Syncope and collapse; Additional info: Syncope, vertigo, headache without injury TECHNIQUE: Imaging protocol: Computed tomography of the head without contrast. Radiation optimization: All CT scans at this facility use at least one of these dose optimization techniques: automated exposure control; mA and/or kV adjustment per patient size (includes targeted exams where dose is matched to clinical indication); or iterative reconstruction. COMPARISON: No relevant prior studies available. RADIATION DOSE METRICS: Total DLP (mGy-cm): 1065.58 FINDINGS: Brain: 3.5 cm old left temporal lobe infarct. 11 mm old subcortical infarct in the posterior right parietal region. White matter hypodensity in the subcortical and frontal periventricular regions, commonly representing chronic small-vessel ischemic changes. No mass effect or midline shift. Moderate cerebral and cerebellar volume loss. No intracranial hemorrhage. Cerebral ventricles: No ventriculomegaly. Paranasal sinuses: Lobulated mucosal thickening is present in the maxillary sinuses and ethmoid air cells. Previous maxillary sinus surgery . Small amount of mucosal thickening in the frontal and sphenoid sinuses. Mastoid air cells: Mastoid air cells are clear. Bones: Unremarkable. No acute fracture. Soft tissues: Unremarkable. CT/CT head wo con* [id number] IMPRESSION: 1. Chronic infarcts and mild chronic small-vessel ischemic changes are noted in the cerebrum. 2. Cerebral and cerebellar volume loss. 3. Mild sinusitis. 4. No acute intracranial abnormality identified. If there is clinical concern for acute stroke, MRI should be obtained.
[2025-07-10 16:15] LABS: Anion Gap 15.5 (5-19); Potassium 4.5 mmol/L (3.5-5.1)
[2025-07-10 17:39] LABS: Troponin 5 2HR 15.44 ng/L (0-15)
[2025-07-10 17:42] LABS: Troponin 5 2HR Delta -0.56 ABS# (0-10)
[2025-07-10 17:46] VITALS: BP 102/67; PULSE 100; RESP 17; O2SAT 94
== END 2025-07-10 17:47 | disposition home or self-care (01) ==
PROVIDERS: Family Medicine; Emergency Provider Physician Assistant; PCP Family Medicine
DX: R42 Dizziness and giddiness (principal); Z86.73 Personal history of transient ischemic attack (TIA), and cerebral infarction without residual deficits; Z87.891 Personal history of nicotine dependence
CPT/HCPCS: 36415; 70450; 71045; 80053; 81001; 84484; 85025; 93005; 99285; J9999

== ENCOUNTER 2025-07-11 12:34 | Observation (INO) | payer MEDICARE, SELFPAY ==
[2025-07-11] VITALS (15 sets, daily range): BP systolic 111–163; BP diastolic 75–101; PULSE 54–120; RESP 10–19; TEMP 36.8–37.3; O2SAT 92–98; BMI 27.3
--- OUTSIDE RECORDS SUMMARY | 2025-07-11 12:37 | XMS_ITS | Encounter Summary ---
Author Organization [facility] Address [address] [place] [address] Care Team Providers Care Hydro Plant Technician Name Role Phone Loreta Andrea DO Primary Care Provider Encounter Details Date Type Department Care Team (Late st Contact Info) Description 05/10/2020 Ancillary Orders [facility] [address] [place] [address] Loreta Andrea DO [address] [place] [address] Right flank pain; History of [...] No acute pathology. Degenerative changes as described. [id number] Narrative Procedure Note Santy Bermudez MD - [...] No acute pathology. Degenerative changes as described. [id number] Loreta Andrea DO DIAGNOSTIC IMAGING ORDERABL ES [...] diff 10/11/2020 10/11/2020 10/12/2020 10:2 5 AM CERTIFIED OPHTHALMIC SURGICAL ASSISTANT documented as of this encounter Care Teams Hydro Plant Technician Relationship Specialty Start Date End Date Loreta Andrea DO [address] [place] [address] PCP - General Family Practice 01/20/19 documented as of this encounter
--- OUTSIDE RECORDS SUMMARY | 2025-07-11 12:37 | XMS_ITS | Clinical Summary ---
Author Organization [facility] Address [address] [place] [id number] Care Team Providers Care Derrickman Helper Name Role Phone ZullyLoreta cottrell Vesta VILLEGAS Primary Care Provider [phone] Allergies Active Allergy Reactions Criticality Noted Date Comments Codeine Itching Low 09/29/2018 Sulfites Anaphylaxis,Itching High 09/29/2018 Medications KRILL OIL ORAL Take 1 Capsule by mouth daily. Active Lactobac no.41/Bifidobact no.7 (PROBIOTIC-10 ORAL) Take 1 Capsule by mouth daily. Active glucosamine/msm/ch ondroitin A (GLUCOSAMINE BZZ-CLF-EDMUNMUILH ) 500-300-400 mg Tablet Take 2 Capsules by mouth daily. Active OTHERIndications:P regnenolone 5mg Take 1 Capsule by mouth daily medical office supervisor Provider please include Medication name, dose, route and frequency . Active OTHERIndications:M uscle Cramp/Tension Take 1 Capsule by mouth daily at bedtime Provider please include Medication name, dose, route and frequency . Active MAGNESIUM ORAL Take 120 mg by mouth daily medical office supervisor. Active UBIQUINONE ORAL Take 1 Capsule by [...] Comments Blood Pressure 122/81 11/07/2020 1:04 PM LUBE WORKER Pulse 87 11/07/2020 1:04 PM LUBE WORKER Temperature 36.6 C (97.8 F) 11/07/2020 1:04 PM LUBE WORKER Respiratory Rate 18 05/03/2020 3:29 PM CDT Oxygen Saturation 96% 11/07/2020 1:04 PM LUBE WORKER Inhaled Oxygen Concentration - - Weight 86.2 kg (190 lb) 11/07/2020 1:04 PM LUBE WORKER Height 172.7 cm (5' 8 ) 11/07/2020 1:04 PM LUBE WORKER Body Mass Index 28.89 11/07/2020 1:04 PM LUBE WORKER Plan of Treatment Health Maintenance Due Date Last Done Comments DTAP/TDAP/TD VACCINES (1 - Tdap) 1959 ZOSTER VACCINE (1 of 2) 1990 PNEUMOCOCCAL VACCINE 50+ YEA RS (2 of 2 - PCV20 or PCV21) 09/10/2007 09/10/2006, 09/10/1999, 09/10/1999 RSV VACCINE (60+ or ) (1 - 1-dose 75+ series) 2015 Medicare [place] ([place]) Preventative Visit/Annual Wellness Visit 09/09/2024 03/24/2019 INFLUENZA VACCINE (#1) 2025 0, 05/04/2020, 06/12/2019, Additional history exists Insurance UHC DUAL COMPLETE [facility] PPO D-SNP Care Teams Derrickman Helper Relationship Specialty Start Date End Date Loreta Andrea DO [address] [place] [address] PCP - General Family Practice 01/20/19
--- OUTSIDE RECORDS SUMMARY | 2025-07-11 12:37 | XMS_ITS | Clinical Summary ---
Author Organization [facility] Address [address] [place] [address] [address] [place] [address] Care Team Providers Care Milk Treater Name Role Phone LilianaMook rockwell Primary Care Provider Allergies Active Allergy Reactions Criticality Noted Date Comments Codeine Itching Low 09/29/2018 Sulfites Anaphylaxis,Itching High 09/29/2018 Medications UBIQUINONE ORAL Take 1 Capsule by mouth daily. 9 Active MAGNESIUM ORAL Take 120 mg by mouth daily welder production line combination. 9 Active L-CYSTINE ORAL Take by mouth [...] on file Legal Sex Male 10:53 AM MENTAL HEALTH ADVANCED PRACTICE NURSE Gender Identity Not on file Sexual Orientation [...] st Contact Info) Description 07/19/2025 10:40 AM MENTAL HEALTH ADVANCED PRACTICE NURSE Office Visit [facility] [address], [place] [id number] Anahi Oglesby, MOBILE MECHANIC [address] [place] [address] Health Maintenance Due Date Last Done Comments DTAP/TDAP/TD VACCINES (1 - Tdap) 1959 ZOSTER VACCINE (1 of 2) 1990 PNEUMOCOCCAL VACCINE 50+ YEA RS (2 of 2 - PCV20 or PCV21) 09/10/2007 09/10/2006, 09/10/1999, 09/10/1999 RSV VACCINE (60+ or ) (1 - 1-dose 75+ series) 2015 [place] Preventative Visit/Annual Wellness Visit 09/09/2024 INFLUENZA VACCINE (#1) 2025 , 05/31/2022, 05/25/2021, Additional history exists Insurance [facility] [id number] RX [employer] RX Member Subscriber Plan / Payer (Ef fective 2020-Present) Name:Osmin Tyler Relation to Subscriber:Self Name:Osmin Tyler Payer ID:Not on file Group ID:[id number] Type:RX Medicare Part D Address: [address] Advance Directives For more information, please contact: [phone] * Full Code (Latest Code Status on File) Date Activated Date Inactivated Comments 11/01/2022 10:08 AM 11/01/2022 8:10 PM Care Teams Milk Treater Relationship Specialty Start Date End Date Mook Rinaldi DO [address] [place] [address] PCP - General Family Practice 08/22/23
--- OUTSIDE RECORDS SUMMARY | 2025-07-11 12:37 | XMS_ITS | Patient Health Record ---
Author Organization [facility] Address [address] [place] [address] Care Team Providers Care Education Coordinator Name Role Phone John Bernardo Unavailable [phone] Reason For Referral No Information Problems Problem Type SNOMED Code ICD Code Onset Dates Problem Status W/U Status Risk Notes Problem Hypercholesterolemia (67601675) Hypercholesterolemia (272.0) 2015 Active confirmed [id number]- Problem Panic attack (918486604) Panic attack (300.01) 2017 Active confirmed [id number]- Problem Cough (14852067) Cough (786.2) 2015 Problem resolved confirmed [id number]- Problem Screening for malignant neoplasm of prostate (773262348) Screening for prostate cancer (V76.44) 2017 Problem resolved confirmed [id number]- Problem Screening for cardiovascular system disease (procedure) (768252715) Screening for cardiovascular conditions (V81.2) 2015 Problem resolved confirmed [id number]- Problem Gastroesophageal reflux disease (151793241) GERD (530.81) 2015 Problem resolved confirmed [id number]- Problem General examination of patient (647187226) Wellness exam (V70.0) 2016 Problem resolved confirmed [id number]- Plan Of Treatment No Information
--- NOTE | 2025-07-11 12:41 | ECG_ITS ---
[facility] Test Date: 2025-07-11 Pat Name: Osmin Tyler Department: Room: Gender: Male Safety And Security Manager: : 1940 Requested By: Dana Ventura Order Number: [id number] Ronn MD: Jayme To M.D. Measurements Intervals [place] Rate: 86 P: 32 WI: 264 QRS: -69 QRSD: 162 T: 0 QT: 380 QTc: 457 Interpretive Statements SINUS RHYTHM WITH FIRST DEGREE AV BLOCK RIGHT BUNDLE BRANCH BLOCK [120+ ms QRS DURATION, UPRIGHT V1, 40+ ms S IN I/aVL/V4/V5/V6] LEFT ANTERIOR FASCICULAR BLOCK [QRS AXIS <= -45, QR IN I, RS IN II] Compared to ECG 07/10/2025 15:21:39 No significant changes Electronically Signed On 07-11-2025 14:05:54 ECHOCARDIOGRAPH TECH by Jayme To M.D. [email or web address]
--- NOTE | 2025-07-11 12:49 | W.ED.GENADLT ---
HPI - General Adult General: Chief complaint: General Medical Stated complaint: htn Time Seen by Provider: 07/11/25 12:41 Source: patient and EMS Mode of arrival: EMS Limitations: no limitations History of Present Illness: 85-year-old male states that been having hypertension over the last 2 days. States he did take handful of supplements on Saturday night and was concerned that he may have took too many. He denies any chest pain denies any shortness of breath or headache. Has had some slight lightheadedness. Seen here yesterday for same is not on any blood pressure medication. Patient's that he gets very lightheaded when he stands he also had a syncopal event yesterday Related Data Home Medications ?Medication ?Instructions ?Recorded ?Confirmed Lactobacillus 1 cap PO DAILY 05/26/20 07/11/25 no.51-Bifidobacterium no.4 50 billion cell capsule (up4 Probiotics Ultra) cholecalciferol (vitamin D3) 10 10 mcg PO DAILY 11/15/20 07/11/25 mcg (400 unit) capsule coenzyme Q10 100 mg capsule (Co 100 mg PO DAILY 11/15/20 07/11/25 Q-10) magnesium glycinate 120 mg (as 120 mg PO DAILY 07/10/25 07/11/25 glycinate) capsule aspirin 325 mg tablet 325 mg PO Q6H PRN Pain 07/11/25 07/11/25 Allergies Allergy/AdvReac Type Severity Reaction Status Date / Time Sulfa (Sulfonamide AdvReac Unknown ADR-Itching Verified 08/19/24 10:25 Antibiotics) codeine AdvReac ADR-Itching Verified 08/19/24 10:25 PFSH ED PFSH: Medical History Renal cyst Family History Mother , at age 83 Alzheimer disease Father , at age 62-killed by a drunk utility worker driver No problems noted. Social History Smoking and tobacco/nicotine status: former use of tobacco/nicotine (quit 50 years ago ) Alcohol intake: never Substance/Drug Use: unknown Adopted: No Caregiver/support person: No Lives independently: No Household members: spouse Marital status: Current occupational status: retired Physical Exam Const: COMMON NORMALS: no acute distress, patient oriented x3 and healthy appearing HENMT: COMMON NORMALS: normocephalic and atraumatic HEAD & SCALP: normocephalic and atraumatic Eye: COMMON NORMALS: Equal, round and reactive pupils present and EOMs intact bilaterally PUPIL: Yes Equal, round and reactive pupils present Neck/C-Spine: COMMON NORMALS: full ROM and supple Chest: COMMONS NORMALS: normal inspection of the chest and normal palpation of entire chest wall Resp: COMMON NORMALS: normal respiratory effort, No retractions, No use of accessory muscles and clear to auscultation bilaterally AUSCULTATION: clear to auscultation bilaterally Cardio: COMMON NORMALS: regular rate, regular rhythm and No murmurs present (Cardio) RATE: regular rate RHYTHM: regular rhythm GI: COMMON NORMALS: Normal to inspection, nondistended, normoactive bowel sounds present, Soft to palpation, non-tender and no masses PALPATION: Yes Soft to palpation Extremity: COMMON NORMALS: normal to inspection and full ROM Neuro: COMMON NORMALS: patient oriented x3, moves all extremities and no focal motor deficits Psych: COMMON NORMALS: mental status grossly normal, Normal thought process present and cooperative THOUGHT PROCESS: Normal thought process present Skin: COMMON NORMALS: no rashes or lesions noted and no wounds GENERAL SKIN EXAM: no rashes or lesions noted Course Vital Signs: Vital signs: Vital Signs Temperature 99.1 F 07/11/25 12:38 Pulse Rate 85 07/11/25 12:38 Respiratory Rate 15 07/11/25 12:38 Blood Pressure 163/97 07/11/25 12:38 Pulse Oximetry 98 07/11/25 12:38 Oxygen Delivery Me thod Room Air 07/11/25 12:38 MDM - General Adult Medical Decision Making Patient is presents here with hypertension along with a syncopal event. His EKG here is normal showed normal sinus rhythm heart rate [address] elevation QRS 162 QTc 424. Said no chest pain no signs of ACS head CT is normal no signs of intracranial hemorrhage. Patient when he stood here did have a period of tachycardia was not able to get EKG of that but did print out the rhythm strip and appeared to be likely A-fib. He states that he is symptomatic when he stands I did speak to hospitalist and will admit for observation. Medical Records I reviewed the patient's medical records. Lab Data I reviewed the patient's lab results. 07/11/25 12:49 07/11/25 12:[address] 07/11/25 13:24 IMPRESSION: No acute intracranial findings. Laboratory Results WBC 6.28 10^3/uL (3.29-11.43) 07/11/25 12:49 RBC 5.17 10^6/uL (3.85-5.65) 07/11/25 12:49 Hgb 16.50 g/dL (11.27-16.99) 07/11/25 12:49 Hct 48.3 % (37-53) 07/11/25 12:49 MCV 93.4 fl (82-101) 07/11/25 12:49 MCH 31.9 pg (27-33) 07/11/25 12:49 MCHC 34.2 g/dL (30-55) 07/11/25 12:49 RDW 13.7 % (12.1-15.1) 07/11/25 12:49 Plt Count 182 10^3/cmm (157-399) 07/11/25 12:49 MPV 8.8 fL (7.4-10.4) 07/11/25 12:49 Neut % (Auto) 72.3 % 07/11/25 12:49 Lymph % (Auto) 18.8 % 07/11/25 12:49 Terry % (Auto) 5.9 % 07/11/25 12:49 Eos % (Auto) 2.2 % 07/11/25 12:49 Baso % (Auto) 0.5 % 07/11/25 12:49 Neut # (Auto) 4.54 10^3/uL (1.8-7.7) 07/11/25 12:49 Lymph # (Auto) 1.2 10^3/uL (0.8-4.8) 07/11/25 12:49 Terry # (Auto) 0.4 10^3/uL (0.2-0.9) 07/11/25 12:49 Eos # (Auto) 0.1 10^3/uL (0.0-0.8) 07/11/25 12:49 Baso # (Auto) 0.0 10^3/uL (0.0-0.1) 07/11/25 12:49 Nucleated RBC % (auto) 0 % 07/11/25 12:49 Nucleated RBCs # 0.0 /100WBC 07/11/25 12:49 Sodium 139 mmol/L (136-145) 07/11/25 12:49 Potassium 4.2 mmol/L (3.5-5.1) 07/11/25 12:49 Chloride 104 mmol/L (98-107) 07/11/25 12:49 Carbon Dioxide 24 mmol/L (22-29) 07/11/25 12:49 Anion Gap 15.2 (5-19) 07/11/25 12:49 BUN 11 mg/dL (8-23) 07/11/25 12:49 Creatinine 0.8 mg/dL (0.7-1.2) 07/11/25 12:49 GFR Calculation Not Reportable 07/11/25 12:49 Glucose 116 mg/dL (65-115) H 07/11/25 12:49 Calculated Osmolality 288 mOsm/kg (285-295) 07/11/25 12:49 Calcium 9.8 mg/dL (8.5-10.5) 07/11/25 12:49 Magnesium 2.0 mg/dL (1.7-2.3) 07/11/25 12:49 Total Bilirubin 0.4 mg/dL (0.15-1.2) 07/11/25 12:49 AST 24 U/L (0-40) 07/11/25 12:49 ALT 16 U/L (0-41) 07/11/25 12:49 Alkaline Phosphatase 77 U/L (40-130) 07/11/25 12:49 Troponin T Baseline 19 ng/L (0-15) H 07/11/25 12:49 Total Protein 6.6 g/dL (6.6-8.7) 07/11/25 12:49 Albumin 4.6 g/dL (3.5-5.2) 07/11/25 12:49 Globulin 2.0 g/dL (1.3-4.6) 07/11/25 12:49 No radiology studies performed this visit EKG Data EKG 1: I personally reviewed and interpreted this EKG as follows: EKG interpretation date: 07/11/25 EKG interpretation time: 12:51 Interpretation: nsr hr [address] elevation qrs 162 qtc 424 Computer generated interpretation: Head CT 07/11/25 13:24 IMPRESSION: No acute intracranial findings. Discharge Plan Discharge Patient Disposition: Placed in Observation Clinical Impression: Syncope, Hypertension Coding Level of Care Code ED Geothermal Plant Manager for Nica Hidalgo
[2025-07-11 12:55] LABS: Hematocrit 48.3 % (37-53); Hemoglobin 16.50 g/dL (11.27-16.99); Mean Corpuscular HGB Conc 34.2 g/dL (30-55); Mean Corpuscular Hemoglobin 31.9 pg (27-33); Mean Corpuscular Volume 93.4 fl (82-101); Nucleated Red Blood Cells % 0 %; Platelet Count 182 10^3/cmm (157-399); Red Blood Count 5.17 10^6/uL (3.85-5.65); White Blood Count 6.28 10^3/uL (3.29-11.43)
[2025-07-11 13:13] LABS: Alanine Aminotransferase 16 U/L (0-41); Albumin Level 4.6 g/dL (3.5-5.2); Alkaline Phosphatase 77 U/L (40-130); Anion Gap 15.2 (5-19); Aspartate Amino Transferase 24 U/L (0-40); Blood Urea Nitrogen 11 mg/dL (8-23); Calcium 9.8 mg/dL (8.5-10.5); Carbon Dioxide 24 mmol/L (22-29); Chloride 104 mmol/L (98-107); Creatinine Clr Calc Pharmacy 68.1882; Globulin 2.0 g/dL (1.3-4.6); Glucose 116 mg/dL (65-115); Magnesium 2.0 mg/dL (1.7-2.3); Osmolality Calculated 288 mOsm/kg (285-295); Potassium 4.2 mmol/L (3.5-5.1); Sodium 139 mmol/L (136-145); Total Protein 6.6 g/dL (6.6-8.7)
[2025-07-11 13:14] LABS: Troponin(5th) Baseline 19 ng/L (0-15)
--- NOTE | 2025-07-11 13:24 | CTR_ITS ---
PROCEDURE INFORMATION: Exam: CT Head Without Contrast Exam date and time: 07/11/2025 2:37 PM Age: 85 years old Clinical indication: Pain; Headache; Additional info: CRESPO TECHNIQUE: Imaging protocol: Computed tomography of the head without contrast. Radiation optimization: All CT scans at this facility use at least one of these dose optimization techniques: automated exposure control; mA and/or kV adjustment per patient size (includes targeted exams where dose is matched to clinical indication); or iterative reconstruction. COMPARISON: CT head wo con* [id number] 07/10/2025 4:34 PM RADIATION DOSE METRICS: Total DLP (mGy-cm): 1253.98 FINDINGS: Brain: No acute hemorrhage. No mass effect. Stable left temporal encephalomalacia. Minimal focal subcortical white matter low-density in the right parietal lobe without change. Cerebral ventricles: Prominence of ventricles and sulci consistent with generalized volume loss or atrophy Paranasal sinuses: Bilateral ethmoid sinus mucosal thickening anteriorly. Mild right sphenoid sinus disease. No air-fluid levels. Mastoid air cells: Visualized mastoid air cells are well aerated. Bones: Unremarkable. No acute fracture. Soft tissues: Unremarkable. CT/CT head wo con* [id number] IMPRESSION: No acute intracranial findings.
[2025-07-11] MEDS: hyDRALAzine 20 mg/mL INJ 1 mL 10 MG IVP (13:38)
--- NOTE | 2025-07-11 14:42 | XRR_ITS ---
PROCEDURE INFORMATION: Exam: XR Chest Exam date and time: 07/11/2025 2:51 PM Age: 85 years old Clinical indication: Condition or disease; Other: HTN; Additional info: SOB; HTN TECHNIQUE: Imaging protocol: Radiologic exam of the chest. Views: 1 view. COMPARISON: CR (CHEST, ) 07/10/2025 3:33 PM FINDINGS: Lungs: Unremarkable. No consolidation. Pleural spaces: Unremarkable. No pleural effusion. No pneumothorax. Heart/Mediastinum: Unremarkable. No cardiomegaly. Vasculature: Slight tortuosity of the descending thoracic aorta without change. Bones/joints: Unremarkable. XR/XR chest 1V portable [id number] IMPRESSION: No acute findings.
--- NOTE | 2025-07-11 14:45 | ECG_ITS ---
[facility] Test Date: 2025-07-11 Pat Name: Osmin Tyler Department: Room: Gender: Male Reverse Unit Operator: : 1940 Requested By: Dana Ventura Order Number: [id number] Ronn MD: Jayme To M.D. Measurements Intervals [place] Rate: 98 P: 62 [place]: 188 QRS: -66 QRSD: 148 T: 25 QT: 359 QTc: 460 Interpretive Statements SINUS RHYTHM RIGHT BUNDLE BRANCH BLOCK [120+ ms QRS DURATION, UPRIGHT V1, 40+ ms S IN I/aVL/V4/V5/V6] LEFT ANTERIOR FASCICULAR BLOCK [QRS AXIS <= -45, QR IN I, RS IN II] Compared to ECG 07/11/2025 12:51:11 First degree AV block no longer present Electronically Signed On 07-11-2025 15:30:41 CHRISTMAS BELL RINGER by Jayme To M.D. [id number]
[2025-07-11 15:14] LABS: Troponin 5 2HR 16.57 ng/L (0-15)
[2025-07-11 15:15] LABS: Troponin 5 2HR Delta -2.43 ABS# (0-10)
--- NOTE | 2025-07-11 16:03 | MRR_ITS ---
PROCEDURE INFORMATION: Exam: MR Head Without Contrast Exam date and time: 07/11/2025 4:22 PM Age: 85 years old Clinical indication: Dizziness and syncope and collapse. Rule out posterior circulation infarct. TECHNIQUE: Imaging protocol: Magnetic resonance imaging of the head without contrast. COMPARISON: CT head wo con* [id number] 07/11/2025 2:37 PM FINDINGS: Brain: Moderate global parenchymal volume loss. No acute infarct. No hemorrhage. Moderate background of T2/FLAIR white matter hyperintensities, likely sequela of chronic microvascular ischemic changes. 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 No edema. Cerebral ventricles: Normal. No ventriculomegaly. Bones: Unremarkable. Paranasal sinuses: Patchy mucosal thickening of the paranasal sinuses. No air-fluid levels. Mastoid air cells: Normal as visualized. No mastoid effusion. Orbital cavities: Unremarkable. Soft tissues: Unremarkable. MR/MR head wo con* [id number] IMPRESSION: 1. No acute infarct. 2. Chronic findings as above.
--- NOTE | 2025-07-11 16:07 | PM.HP ---
Providers/Chief Complaint Primary Care Provider: Loreta Andrea DO Chief Complaint: htn History of Present Illness As per the previous notes and the patient/: Osmin Tyler is a 85 year old male with past medical history of hypertension not on medications, controlled as per the patient, restless leg syndrome but not on medications, came to ER with an episode of syncope. As per the patient and the he woke up in the morning and tried to get up and go to the bathroom. However he felt a little dizzy, had a blackout on the bed and passed out for 2 to 3 seconds. The patient further reported that he takes magnesium supplements, vitamin D, glycine and vitamin K supplements at regular intervals in a day however before coming to the hospital he took all of these together and had an episode of diarrhea after the syncope. He felt the room was spinning. He did not hit his head. No abnormal movements or seizures and no incontinent features. No history of tongue bite. The patient overall lives a very healthy lifestyle and is independent in his daily life. No history of chest pain, chest pressure, abdominal pain, diarrhea or nausea or vomiting. No recent leg swellings. No previous history of any strokes or heart attacks. The patient daughter today due to a heart attack as per the . No history of smoking, drugs or any alcohol abuse disorder Review of Systems General: Reports: 10 or more systems reviewed and unremarkable except in HPI and below Medications/Allergies Home Medications ?Medication ?Instructions ?Recorded ?Confirmed ?Last Taken ?Type Lactobacillus 1 cap PO DAILY 05/26/20 07/11/25 07/10/25 History no.51-Bifidobacterium no.4 50 billion cell capsule (up4 Probiotics Ultra) cholecalciferol (vitamin D3) 10 10 mcg PO DAILY 11/15/20 07/11/25 07/10/25 History mcg (400 unit) capsule coenzyme Q10 100 mg capsule (Co 100 mg PO DAILY 11/15/20 07/11/25 07/11/25 History Q-10) magnesium glycinate 120 mg (as 120 mg PO DAILY 07/10/25 07/11/25 07/10/25 History glycinate) capsule aspirin 325 mg tablet 325 mg PO Q6H PRN Pain 07/11/25 07/11/25 07/11/25 History Allergies Allergy/AdvReac Type Severity Reaction Status Date / Time Sulfa (Sulfonamide AdvReac Unknown ADR-Itching Verified 08/19/24 10:25 Antibiotics) codeine AdvReac ADR-Itching Verified 08/19/24 10:25 PFSH Acute PFSH: Medical History (Updated 07/11/25 @ 18:17 by Lazaro Guidry MD) Renal cyst Family History Mother , at age 83 Alzheimer disease Father , at age 62-killed by a drunk local flatbed driver No problems noted. Social History Smoking and tobacco/nicotine status: former use of tobacco/nicotine (quit 50 years ago ) Alcohol intake: never Substance/Drug Use: unknown Adopted: No Caregiver/support person: No Lives independently: No Household members: spouse Marital status: Current occupational status: retired Vitals/I&O/Wt Last Vital Signs Temp 99.1 F 07/11/25 12:38 Pulse 85 07/11/25 12:38 Resp 15 07/11/25 12:38 BP 163/97 07/11/25 12:38 Pulse Ox 98 07/11/25 12:38 O2 Del Method Room Air 07/11/25 12:38 Weight last 48 hrs Weight 79.379 kg Physical Exam Narrative: General: Alert and oriented, lying comfortably without any distress HEENT: Normocephalic, atraumatic, grossly unremarkable exam Cardio: normal rate rhythm, normal S1-S2 without any murmurs, rubs, or gallops and JVD normal Respiratory: normal vascular breathing on auscultation without any wheezes, stridor, rhonchi GI: Abdomen soft, nontender, nondistended, normoactive bowel sounds present all 4 quadrants, Neuro: intact cranial nerves motor and sensory and cerebellar/coordination function without any focal neurological deficit, gait cant be assessed since the patient feels dizzy when standing, however past-pointing and dysdiadochokinesia was unremarkable and no pronator drift Behavior: Appropriate and cooperative Extremities: Adequate palpable pulses, no edema or cyanosis observed Skin: grossly unremarkable exam Data 07/11/25 12:49 07/11/25 12:49 A&P Assessment and plan 1. TIA (transient ischemic attack): Syncope workup, possible TIA? MRI brain ruled out posterior circulation stroke, patient CT head negative OT PT therapy Load with aspirin 325 mg once daily Start aspirin Plavix considering it could be TIA Start statins consider neuro at the time of discharge Telemetry monitoring OT PT evaluation Orthostatics monitoring Echo and carotid ultrasound Neurochecks every shift Maintain normal vitals 2. Syncope, unspecified syncope type: As mentioned above 3. Vertigo: Patient felt room was spinning around could be benign positional vertigo as well To follow-up with OT PT 4. Hypertension: Uncontrolled blood pressure, Started on amlodipine 5 mg from tomorrow 5. Restless leg syndrome: Currently stable, patient was offered pregabalin however he refused and will prefer conservative management such as Tylenol and resting. PDMP PDMP Reviewed: Not Reviewed Attestations Medical Necessity Statement*: The patient will stay over midnight for the management of possible TIA? syncope and requiring OT PT evaluation Time Spent in Patient Care: 16 - 35 minutes (>than 50% of time spent in counselling and/or direct pt care on unit). Other Attestations: Patient condition has been discussed at length with the patient/family, I have independently reviewed the chart labs imaging/diagnostics/EKG. the goals of care and code status with the patient/family/NOK/legal appeals representative, and documented accordingly. The management has been done according to the current clinical condition with respect to patient goals of care and based on recommendations/guidelines. The patient/family has been informed about the current condition and further plan of care. Agreed with the plan of care and understood without any language barrier. Every effort was made to ensure accuracy of administrative services officer. Any obvious errors or omissions should be clarified with the author of the document. Coding Level of Care Code Acute Code for g Fwd Diagnoses TIA (transient ischemic attack) G45.9 Syncope, unspecified syncope type R55 Syncope type: unspecified Vertigo R42 Hypertension I10 Restless leg syndrome G25.81
[2025-07-11 16:14] LABS: Glucose Urine UA Negative (Normal); Nitrate Urine Negative (Negative); Specific Gravity, Urine 1.008 (1.005-1.030)
[2025-07-11 16:19] LABS: Add Urine Microscopic? YES
[2025-07-11 16:23] LABS: Estmated Average Glucose 103; Hemoglobin A1C 5.2 % (4.0-6.0)
[2025-07-11 16:32] LABS: Magnesium 2.1 mg/dL (1.7-2.3); Thyroid Stimulating Hormone 2.18 uIU/mL (0.27-4.20)
[2025-07-11] MEDS: pantoprazole 40 mg SDV IVP (17:38)
[2025-07-11] MEDS: heparin 5,000 unit/mL INJ 1 mL 5000 UNIT SUBCUT (17:41)
[2025-07-11 19:42] LABS: Troponin 5 6HR 18.69 ng/L (0-15)
[2025-07-11 19:54] LABS: Troponin 5 6HR Delta -0.31 ng/L (0-12)
[2025-07-12] VITALS: BP 135/87; PULSE 80; RESP 17; TEMP 36.9; O2SAT 94
[2025-07-12 01:11] LABS: Hematocrit 46.4 % (37-53); Hemoglobin 15.50 g/dL (11.27-16.99); Mean Corpuscular HGB Conc 33.4 g/dL (30-55); Mean Corpuscular Hemoglobin 31.3 pg (27-33); Mean Corpuscular Volume 93.5 fl (82-101); Nucleated Red Blood Cells % 0 %; Platelet Count 178 10^3/cmm (157-399); Red Blood Count 4.96 10^6/uL (3.85-5.65); White Blood Count 6.42 10^3/uL (3.29-11.43)
[2025-07-12 01:28] LABS: Alanine Aminotransferase 14 U/L (0-41); Albumin Level 4.2 g/dL (3.5-5.2); Alkaline Phosphatase 67 U/L (40-130); Blood Urea Nitrogen 9 mg/dL (8-23); Calcium 9.4 mg/dL (8.5-10.5); Carbon Dioxide 24 mmol/L (22-29); Chloride 104 mmol/L (98-107); Creatinine Clr Calc Pharmacy 68.1882; Globulin 1.9 g/dL (1.3-4.6); Glucose 108 mg/dL (65-115); Osmolality Calculated 289 mOsm/kg (285-295); Sodium 140 mmol/L (136-145); Total Protein 6.1 g/dL (6.6-8.7)
[2025-07-12 01:36] LABS: Anion Gap 16.0 (5-19); Aspartate Amino Transferase 24 U/L (0-40); Potassium 4.0 mmol/L (3.5-5.1)
[2025-07-12 04:00] VITALS: BP 121/81; PULSE 71; RESP 14; TEMP 36.6; O2SAT 94
[2025-07-12] MEDS: heparin 5,000 unit/mL INJ 1 mL 5000 UNIT SUBCUT (04:32)
--- OUTSIDE RECORDS SUMMARY | 2025-07-12 06:48 | XMS_ITS | Patient Health Record ---
Author Organization [facility] Address [address] [place] [address] Care Team Providers Care Space Operations Officer Name Role Phone John Bernardo Unavailable [phone] Reason For Referral No Information Problems Problem Type SNOMED Code ICD Code Onset Dates Problem Status W/U Status Risk Notes Problem Hypercholesterolemia (64184297) Hypercholesterolemia (272.0) 2015 Active confirmed [id number]- Problem Panic attack (341925723) Panic attack (300.01) 2017 Active confirmed [id number]- Problem Screening for malignant neoplasm of prostate (878313477) Screening for prostate cancer (V76.44) 2017 Problem resolved confirmed [id number]- Problem Screening for cardiovascular system disease (procedure) (271060965) Screening for cardiovascular conditions (V81.2) 2015 Problem resolved confirmed [id number]- Problem Gastroesophageal reflux disease (357323905) GERD (530.81) 2015 Problem resolved confirmed [id number]- Problem General examination of patient (300470202) Wellness exam (V70.0) 2016 Problem resolved confirmed [id number]- Problem Cough (12536531) Cough (786.2) 2015 Problem resolved confirmed [id number]- Plan Of Treatment No Information
--- OUTSIDE RECORDS SUMMARY | 2025-07-12 06:48 | XMS_ITS | Clinical Summary ---
Author Organization [facility] Address [address] [place] [address] [address] [place] [address] Care Team Providers Care Neurology Nurse Name Role Phone LilianaMook rockwell Primary Care Provider [phone] Allergies Active Allergy Reactions Criticality Noted Date Comments Codeine Itching Low 09/29/2018 Sulfites Anaphylaxis,Itching High 09/29/2018 Medications UBIQUINONE ORAL Take 1 Capsule by mouth daily. 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 9 Active L-CYSTINE ORAL Take by mouth [...] on file Legal Sex Male 10:53 AM LICENSED FINAL EXPENSE AGENTS Gender Identity Not on file Sexual Orientation [...] st Contact Info) Description 07/19/2025 10:40 AM LICENSED FINAL EXPENSE AGENTS Office Visit [facility] [address], [place] [phone] Anahi Oglesby, ADMINISTRATIVE TECHNICIAN [address] [place] [phone] Health Maintenance Due Date Last Done Comments DTAP/TDAP/TD VACCINES (1 - Tdap) 1959 ZOSTER VACCINE (1 of 2) 1990 PNEUMOCOCCAL VACCINE 50+ YEA RS (2 of 2 - PCV20 or PCV21) 09/10/2007 09/10/2006, 09/10/1999, 09/10/1999 RSV VACCINE (60+ or ) (1 - 1-dose 75+ series) 2015 [place] ([place]) Preventative Visit/Annual Wellness Visit 09/09/2024 INFLUENZA VACCINE (#1) 2025 , 05/31/2022, 05/25/2021, Additional history exists Insurance [facility] [id number] RX [employer] RX Member Subscriber Plan / Payer (Ef fective 2020-Present) Name:Osmin Tyler Relation to Subscriber:Self Name:Osmin Tyler Payer ID:Not on file Group ID:[id number] Type:RX Medicare Part D Address: [address] Advance Directives For more information, please contact: [phone] * Full Code (Latest Code Status on File) Date Activated Date Inactivated Comments 11/01/2022 10:08 AM 11/01/2022 8:10 PM Care Teams Neurology Nurse Relationship Specialty Start Date End Date Mook Rinaldi DO [address] [place] [address] PCP - General Family Practice 08/22/23
--- OUTSIDE RECORDS SUMMARY | 2025-07-12 06:48 | XMS_ITS | Encounter Summary ---
Author Organization [facility] Address [address] [place] [address] Care Team Providers Care Bioinformatics Associate Name Role Phone Loreta Andrea DO Primary Care Provider Encounter Details Date Type Department Care Team (Late st Contact Info) Description 05/10/2020 Ancillary Orders [facility] [address] [place] [address] Loreta Andrea DO [address] [place] [address] Right flank pain; History of [...] No acute pathology. Degenerative changes as described. [id number] Narrative Procedure Note Santy Bermudez MD - [...] No acute pathology. Degenerative changes as described. [id number] Loreta Andrea DO DIAGNOSTIC IMAGING ORDERABL ES [...] diff 10/11/2020 10/11/2020 10/12/2020 10:2 5 AM TELE RN documented as of this encounter Care Teams Bioinformatics Associate Relationship Specialty Start Date End Date Loreta Andrea DO [address] [place] [address] PCP - General Family Practice 01/20/19 documented as of this encounter
--- OUTSIDE RECORDS SUMMARY | 2025-07-12 06:48 | XMS_ITS | Clinical Summary ---
Author Organization [facility] Address [address] [place] [address] Care Team Providers Care Sales Professional Bilingual Name Role Phone ZullyLoreta cottrell Vesta VILLEGAS Primary Care Provider [phone] Allergies Active Allergy Reactions Criticality Noted Date Comments Codeine Itching Low 09/29/2018 Sulfites Anaphylaxis,Itching High 09/29/2018 Medications KRILL OIL ORAL Take 1 Capsule by mouth daily. Active Lactobac no.41/Bifidobact no.7 (PROBIOTIC-10 ORAL) Take 1 Capsule by mouth daily. Active glucosamine/msm/ch ondroitin A (GLUCOSAMINE [id number] ) 500-300-400 mg Tablet Take 2 Capsules by mouth daily. 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 Active OTHERIndications:M uscle Cramp/Tension Take 1 Capsule by mouth daily at bedtime Provider please include Medication name, dose, route and frequency . Active MAGNESIUM ORAL Take 120 mg by mouth daily final assembly and packing supervisor. Active UBIQUINONE ORAL Take 1 Capsule [...] Comments Blood Pressure 122/81 11/07/2020 1:04 PM ASSEMBLER GARMENT FORM Pulse 87 11/07/2020 1:04 PM ASSEMBLER GARMENT FORM Temperature 36.6 C (97.8 F) 11/07/2020 1:04 PM ASSEMBLER GARMENT FORM Respiratory Rate 18 05/03/2020 3:29 PM CDT Oxygen Saturation 96% 11/07/2020 1:04 PM ASSEMBLER GARMENT FORM Inhaled Oxygen Concentration - - Weight 86.2 kg (190 lb) 11/07/2020 1:04 PM ASSEMBLER GARMENT FORM Height 172.7 cm (5' 8 ) 11/07/2020 1:04 PM ASSEMBLER GARMENT FORM Body Mass Index 28.89 11/07/2020 1:04 PM ASSEMBLER GARMENT FORM Plan of Treatment Health Maintenance Due Date Last Done Comments DTAP/TDAP/TD VACCINES (1 - Tdap) 1959 ZOSTER VACCINE (1 of 2) 1990 PNEUMOCOCCAL VACCINE 50+ YEA RS (2 of 2 - PCV20 or PCV21) 09/10/2007 09/10/2006, 09/10/1999, 09/10/1999 RSV VACCINE (60+ or ) (1 - 1-dose 75+ series) 2015 [place] ([place]) Preventative Visit/Annual Wellness Visit 09/09/2024 03/24/2019 INFLUENZA VACCINE (#1) 2025 0, 05/04/2020, 06/12/2019, Additional history exists Insurance UHC DUAL COMPLETE [facility] PPO D-SNP Care Teams Sales Professional Bilingual Relationship Specialty Start Date End Date Loreta Andrea DO [address] [place] [address] PCP - General Family Practice 01/20/19
[2025-07-12 07:28] VITALS: BP 125/82; PULSE 78; RESP 16; TEMP 36.9; O2SAT 94
--- NOTE | 2025-07-12 09:27 | PC.CHAP ---
Pastoral Care Encounter/Spiritual Assessment Type of Contact [] Declined tube operator visit [] Patient/Family/Request visit [] Outpatient visit [] Follow-up visit [] Physician referral [] Code/Alert [x] Routine visit [] Staff referral [] Actively dying [] Patient sleeping [] Family support [] [] Out of room [] Palliative care [] [] Receiving care in room [] Pre-surgical visit [] Trauma [] Long length of stay [] ICU visit [] Other: Relational/Emotional Strength [] Patient feels connected with others/family/visitors/staff [] Distress [] Loneliness/isolation [] Abandonment Spirituality of Patient [x] Person of [place] [] Attends Mandaen of their [place] [x] Believes in Prayer [] Reads Bible or Catholic materials [] There are Spiritual issues to be addressed Orthopedic Brace Maker Interventions [x] Prayer [x] Active listening [] Non-anxious presence [] Spiritual/emotional support [] Crisis/trauma care [] Spiritual counseling [] Bereavement support [] Provided bereavement packet [x] Provided Bible/devotional materials [] Provided toy/stuffed animal, coloring book to patient or family member [] Provided Communion [] Anointing/[place] [] Salvation [x] Completed spiritual assessment [] Other: Impact on Illness or Injury [] Angry [] Fearful [] Anxious [] Often cries [] Exhaustion [] Unable to work [] Unable to attend baptism [] Unable to walk/stand [] Unable to read [] Unable to drive [] Unable to eat/drink [] Unable to sleep [] Unable to be with family [] Patient intubated [] Other: Summary Time spent with patient 5 min
[2025-07-12 11:09] VITALS: BP 128/82; PULSE 86; RESP 17; TEMP 37.1; O2SAT 92
[2025-07-12 11:22] VITALS: BP 107/73; BP 109/72; BP 110/74
--- NOTE | 2025-07-12 14:19 | P.DS_ITS ---
Discharge Providers Date of Admission: 07/11/25 16:04 Date of Discharge: July 12, 2025 Attending Provider at Admission: Lazaro Guidry MD Attending Provider at Discharge: Octavia Burnette MD Primary Care Provider: Loreta Andrea DO Diagnoses at Discharge Discharge Diagnosis 1. TIA (transient ischemic attack): 2. Syncope, unspecified syncope type: 3. Vertigo: 4. Hypertension: 5. Restless leg syndrome: Reason for Visit Reason for Visit: htn Hospital Course Hospital Course Osmin Tyler is a 85 year old male with past medical history of hypertension not on medications, controlled as per the patient, restless leg syndrome but not on medications, came to ER with an episode of syncope. As per the patient and the he woke up in the morning and tried to get up and go to the bathroom. However he felt a little dizzy, had a blackout on the bed and passed out for 2 to 3 seconds. The patient further reported that he takes magnesium supplements, vitamin D, glycine and vitamin K supplements at regular intervals in a day however before coming to the hospital he took all of these together and had an episode of diarrhea after the syncope. He felt the room was spinning. MRI of the brain was performed which ruled out a posterior circulation stroke. MRI did not show any acute infarct. 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 Aspirin 81 mg daily was added to his regimen. He had been in the ER 1 day prior with a blood pressure of 180 mmHg. Amlodipine 5 mg was added on this admission which patient is currently tolerated. Orthostatics were checked and no significant orthostatic hypotension was encountered. Carotid Doppler showed less than 50% stenosis of the right and left ICA.no significant obstruction noted. EKG showed sinus rhythm with right bundle branch block, uncertain chronicity. Echocardiogram is currently pending. Trop series was 16--> 18 with no signifcant delta. An event monitor was arranged at the time of discharge. PT OT and speech therapy assessments were completed without any issues. No arrhythmias were encountered on a 24-hour engine monitor. Physical Exam Narrative: General: No acute distress, AO x3 HEENT: PERRLA, pupils bilaterally equal and reactive, pallors not present Chest: Normal vesicular breath sounds, no added sounds, equal good air entry bilaterally CVS: S1-S2 regular, no murmurs, no tachycardia, no gallops, no rubs Abdomen: Soft, nontender, no organomegaly, bowel sounds present Neuro: No focal deficits, no facial deformity, AO x3, power 5/5 in all limbs Discharge Data Studies Completed and Pending Completed Studies During Hospitalization Category Date Time Status CT head wo con* [id number] Stat Cat Scan 07/11/25 13:24 Completed CXRP [XR chest 1V portable [id number]] Stat Exams 07/11/25 14:42 Completed MR head wo con* [id number] Stat MRI 07/11/25 16:03 Completed CV carotid duplex BI* [id number] Stat Ultrasound 07/12/25 16:08 Completed Pending at discharge Category Date Time Status CV. echo complete* [id number] Stat Ultrasound 07/12/25 16:08 Taken Radiology Impressions Head CT 07/11/25 13:24 IMPRESSION: No acute intracranial findings. Chest X-Ray 07/11/25 14:42 IMPRESSION: No acute findings. Head MRI 07/11/25 16:03 IMPRESSION: 1. No acute infarct. 2. Chronic findings as above. Laboratory Results WBC 6.42 10^3/uL (3.29-11.43) 07/12/25 00:54 RBC 4.96 10^6/uL (3.85-5.65) 07/12/25 00:54 Hgb 15.50 g/dL (11.27-16.99) 07/12/25 00:54 Hct 46.4 % (37-53) 07/12/25 00:54 MCV 93.5 fl (82-101) 07/12/25 00:54 MCH 31.3 pg (27-33) 07/12/25 00:54 MCHC 33.4 g/dL (30-55) 07/12/25 00:54 RDW 13.7 % (12.1-15.1) 07/12/25 00:54 Plt Count 178 10^3/cmm (157-399) 07/12/25 00:54 MPV 9.1 fL (7.4-10.4) 07/12/25 00:54 Neut % (Auto) 77.2 % 07/12/25 00:54 Lymph % (Auto) 13.4 % 07/12/25 00:54 Coles % (Auto) 7.2 % 07/12/25 00:54 Eos % (Auto) 1.4 % 07/12/25 00:54 Baso % (Auto) 0.5 % 07/12/25 00:54 Neut # (Auto) 4.96 10^3/uL (1.8-7.7) 07/12/25 00:54 Lymph # (Auto) 0.9 10^3/uL (0.8-4.8) 07/12/25 00:54 Coles # (Auto) 0.5 10^3/uL (0.2-0.9) 07/12/25 00:54 Eos # (Auto) 0.1 10^3/uL (0.0-0.8) 07/12/25 00:54 Baso # (Auto) 0.0 10^3/uL (0.0-0.1) 07/12/25 00:54 Nucleated RBC % (auto) 0 % 07/12/25 00:54 Nucleated RBCs # 0.0 /100WBC 07/12/25 00:54 Sodium 140 mmol/L (136-145) 07/12/25 00:54 Potassium 4.0 mmol/L (3.5-5.1) 07/12/25 00:54 Chloride 104 mmol/L (98-107) 07/12/25 00:54 Carbon Dioxide 24 mmol/L (22-29) 07/12/25 00:54 Anion Gap 16.0 (5-19) 07/12/25 00:54 BUN 9 mg/dL (8-23) 07/12/25 00:54 Creatinine 0.7 mg/dL (0.7-1.2) 07/12/25 00:54 GFR Calculation Not Reportable 07/12/25 00:54 Glucose 108 mg/dL (65-115) 07/12/25 00:54 Estimat Average Glucose 103 07/11/25 12:49 Hemoglobin A1c 5.2 % (4.0-6.0) 07/11/25 12:49 Calculated Osmolality 289 mOsm/kg (285-295) 07/12/25 00:54 Calcium 9.4 mg/dL (8.5-10.5) 07/12/25 00:54 Phosphorus 2.6 mg/dL (2.5-4.5) 07/11/25 12:49 Magnesium 2.0 mg/dL (1.7-2.3) 07/11/25 12:49 Magnesium 2.1 mg/dL (1.7-2.3) 07/11/25 12:49 Total Bilirubin 0.5 mg/dL (0.15-1.2) 07/12/25 00:54 AST 24 U/L (0-40) 07/12/25 00:54 ALT 14 U/L (0-41) 07/12/25 00:54 Alkaline Phosphatase 67 U/L (40-130) 07/12/25 00:54 Troponin T Baseline 19 ng/L (0-15) H 07/11/25 12:49 Troponin T 120 Minute 16.57 ng/L (0-15) H 07/11/25 14:45 Delta Troponin T -2.43 ABS# (0-10) L 07/11/25 14:45 Troponin T Hi Sens 6Hr 18.69 ng/L (0-15) H 07/11/25 19:14 Troponin T Hi Sens 6Hr Delta -0.31 ng/L (0-12) L 07/11/25 19:14 Total Protein 6.1 g/dL (6.6-8.7) L 07/12/25 00:54 Albumin 4.2 g/dL (3.5-5.2) 07/12/25 00:54 Globulin 1.9 g/dL (1.3-4.6) 07/12/25 00:54 TSH 2.18 uIU/mL (0.27-4.20) 07/11/25 12:49 Urine Color Yellow (Yellow) 07/11/25 16:04 Urine Appearance Clear (CLEAR) 07/11/25 16:04 Urine pH 7.5 (5-7) 07/11/25 16:04 Ur Specific [place] 1.008 (1.005-1.030) 07/11/25 16:04 Urine Protein Negative (Negative) 07/11/25 16:04 Urine Glucose (UA) Negative (Normal) 07/11/25 16:04 Urine Ketones Negative (Negative) 07/11/25 16:04 Urine Blood Negative (Negative) 07/11/25 16:04 Urine Nitrate Negative (Negative) 07/11/25 16:04 Urine Bilirubin Negative (Negative) 07/11/25 16:04 Urine Urobilinogen 0.2 mg/dL (Negative) 07/11/25 16:04 Ur Leukocyte Esterase Negative (Negative) 07/11/25 16:04 Urine RBC 0-2 /hpf (0-2) 07/11/25 16:04 Urine WBC 0-5 /hpf (0-5) 07/11/25 16:04 Ur Squamous Epith Cells 0-5 /hpf (0-5) 07/11/25 16:04 Amorphous Sediment Not Reportable 07/11/25 16:04 Urine Bacteria None seen /hpf (NONE) 07/11/25 16:04 Hyaline Casts 0.40 /lpf 07/11/25 16:04 Vitals Last Vital Signs Temp 98.7 F 07/12/25 11:09 Pulse 86 07/12/25 11:09 Resp 17 07/12/25 11:09 BP 110/74 07/12/25 11:22 Pulse Ox 92 07/12/25 11:09 O2 Del Method Room Air 07/12/25 11:09 Discharge Plan Discharge Patient Disposition: Home Condition: Stable Prescriptions: New amlodipine 5 mg Tablet 5 mg PO DAILY Qty: 30 0RF aspirin 81 mg Tablet,Delayed Release (Dr/Ec) 81 mg PO DAILY 30 Days Qty: 30 0RF Continued cholecalciferol (vitamin D3) 10 mcg (400 unit) capsule 10 mcg PO DAILY coenzyme Q10 [Co Q-10] 100 mg capsule 100 mg PO DAILY up4 Probiotics Ultra 50 billion cell capsule 1 cap PO DAILY magnesium glycinate 120 mg Capsule 120 mg PO DAILY Discontinued aspirin 325 mg Tablet 325 mg PO Q6H PRN (Reason: Pain) Discharge Order = DC NOW: Discharge Order (Routine); Ordered 07/12/25 Ordered By: Octavia Burnette Other Ambulatory Orders: MCT/Event Monitor 14 Days (Routine) Timeframe: 1 Day Facility: [facility] - Location: Radiology Ordered By: Octavia Burnette Referrals: Marisabel Erazo MD [Physician, Neurology] - 11/22/25 3:00 pm Referral Note: Loreta Chen DO [Primary Care Provider, Family Practice] Referral Note: We have notified your physician's clinic of the need for a follow-up appointment to be scheduled. If you have not heard from them within the next 2 business days, please call them directly. Patient Instructions: Transient Ischemic Attack (GEN), Syncope (DC), Opioid Safety, Stroke Stoplight, Patient Portal & Kelsey Instructions Discharge Attestations Time Spent in Discharge Care*: greater than 30 min Quality Metrics Clinical Quality Measures [ No reported AMI, CVA or VTE this stay] Coding Level of Care Code Acute Code for Chg Fwd Diagnoses TIA (transient ischemic attack) G45.9 Syncope, unspecified syncope type R55 Syncope type: unspecified Vertigo R42 Hypertension I10 Restless leg syndrome G25.81
--- NOTE | 2025-07-12 16:08 | USCV_ITS ---
Osmin Tyler Age: 85 Gender: M : 1940 Exam Date: 07/12/2025 09:57 Ordering Phys: Lazaro Guidry MD Technologist: Exam Location: [facility] [place] Indication: cva Risk Factors: Previous Vascular Surgery: Right Brachial BP: / Left Brachial BP: / Right Left Velocity (cm/s) Spectral Plaque Velocity (cm/s) Spectral Plaque Syst/Diast Broadening Syst/Diast Broadening 92.90/ 19.90 Prox CCA / 89.30/ 21.70 Mid CCA 60.50 / 14.10 54.60/ 12.60 Distal CCA 43.80 / 11.50 58.20/ 16.20 Prox ICA 47.90 / 13.80 52.80/ 12.80 Mid ICA 42.80 / 15.00 55.40/ 12.80 Distal ICA 52.90 / 22.60 ECA 80.20 1.10 ICA/CCA 1.20 Antegrade Vertebral Antegrade 22.60/ 7.30 cm/s 30.20/ 7.50 cm/s Bi Subclavian Tri 62.50 59.10 CONCLUSIONS Right ICA stenosis <50%. Mild atheromatous plaque right carotid bulb/ICA. Left ICA stenosis <50%. Mild atheromatous plaque left carotid bulb/ICA. Intimal thickening in the common carotid arteries and internal carotid arteries bilaterally. Normal antegrade Doppler flow noted in the right vertebral artery. Normal antegrade Doppler flow noted in the left vertebral artery. Den Abbott MD (Electronically Signed) Final Date: 12 July 2025 13:32 S
--- NOTE | 2025-07-12 16:08 | USCV_ITS ---
Osmin Tyler Age: 85 Gender: M : 1940 Exam Date: 07/12/2025 09:42 Ordering Phys: Lazaro Guidry MD Technologist: Exam Location[place] [facility] [place]ication: cva BP: 134 / 74 HR: 78 Rhythm: Sinus Technical Quality: Adequate MEASUREMENTS (Male / Female) Normal Values 2D ECHO LV Diastolic Diameter PLAX 4.3 cm 4.2 - 5.9 / 3.9 - 5.3 cm IVS Diastolic Thickness 1.0 cm 0.6 - 1.0 / 0.6 - 0.9 cm IVS Systolic Thickness 2.0 cm LVPW Diastolic Thickness 1.4 cm 0.6 - 1.0 / 0.6 - 0.9 cm LVPW Systolic Thickness 1.5 cm LVOT Diameter 2.6 cm LV Ejection Fraction 2D Teich 62.4 % LV Ejection Fraction MOD 4C 68.6 % LV Ejection Fraction MOD 2C 56.3 % LV Ejection Fraction 2C AL 57.1 % LA Diameter 4.0 cm Aorta at Sinotubular Diameter 3.3 cm M-MODE LA Ao Ratio MM 1.1 AV Cusp Separation MM 1.3 cm DOPPLER AV Peak Velocity 252.0 cm/s LVOT Peak Velocity 74.0 cm/s AV Area Cont Eq vti 1.7 cm squared AV Area Cont Eq pk 1.6 cm squared MV Peak Velocity 90.0 cm/s MV Area PHT 5.3 cm squared Mitral E to A Ratio 0.5 TR Peak Velocity 132.0 cm/s TR Peak Gradient 7.0 mmHg TV Peak E Velocity 98.0 cm/s PV Peak Velocity 98.0 cm/s FINDINGS Left Ventricle Normal left ventricular size and systolic function, EF 62%. Mild left ventricular hypertrophy. No regional wall motion abnormalities. Grade I/IV diastolic dysfunction (abnormal relaxation filling pattern), normal to mildly elevated filling pressures. Right Ventricle Normal right ventricular size and systolic function. Right Atrium Normal right atrial size. Left Atrium Normal left atrial size. IA Septum Normal appearance of the interatrial septum. Mitral Valve Trace mitral valve regurgitation. Aortic Valve Moderate aortic valve stenosis, mean gradient 13.3 mmHg, STEPHANY 1.1 cm squared. Peak velocity of 2.7 4m/s Tricuspid Valve No gross abnormalities noted Pulmonic Valve Pulmonic valve not well visualized. Pericardium No pericardial effusion. Aorta Normal aortic annulus size. IVC Inferior vena cava not visualized. CONCLUSIONS Normal left ventricular size and systolic function, EF 62%. Mild left ventricular hypertrophy. No regional wall motion abnormalities. Grade I/IV diastolic dysfunction (abnormal relaxation filling pattern), normal to mildly elevated filling pressures. Trace mitral valve regurgitation. Moderate aortic valve stenosis, mean gradient 13.3 mmHg, STEPHANY 1.1 cm squared. Peak velocity of 2.7 4m/s. There is no pericardial effusion. There are no intracardiac masses. No similar previous studies are available for comparison Dr Lexis Patterson MD FAC (Electronically Signed) Final Date: 12 July 2025 15:50 S
[2025-07-12 16:27] VITALS: BP 128/82; PULSE 86; RESP 17; TEMP 37.1; O2SAT 92
== END 2025-07-12 16:29 | disposition home or self-care (01) ==
LOC: ER 14:57 → MEDSURG 22:08
PROVIDERS: Admitting Provider Student in an Organized Health Care Education/Training Program; Emergency Provider Emergency Medicine; PCP Family Medicine; Visit Provider Student in an Organized Health Care Education/Training Program
DX: R55 Syncope and collapse (principal); G45.9 Transient cerebral ischemic attack, unspecified; R42 Dizziness and giddiness; I10 Essential (primary) hypertension; G25.81 Restless legs syndrome; Z79.82 Long term (current) use of aspirin; Z87.891 Personal history of nicotine dependence
CPT/HCPCS: 36415; 70450; 70551; 71045; 80053; 81001; 83036; 83735; 84100; 84443; 84484; 85025; 92523; 92610; 93005; 93306; 93880; 96372; 96374; 96375; 97161; 97165; 99285; G0378; J0360; J1644; J2470; J9999